=== PATIENT | female | born 1960 | race Caucasian/White ===

== ENCOUNTER 2017-04-17 12:44 | Inpatient (IN) ==
--- NOTE | 2017-04-16 22:36 | Discharge Summary ---
<Promise Sheriff Jackie - Last Filed: 04/16/17 22:31> Date of Encounter: 04/16/17 - Discharge Diagnosis (1) Arthritis of knee, left Priority: Primary Status: Acute (2) Status post total knee replacement, left Priority: Primary Status: Acute (3) Obesity Priority: Secondary Status: Chronic Qualifiers: Obesity type: due to excess calories Obesity classification: unspecified obesity classification Serious obesity comorbidity presence: without serious comorbidity Qualified Code(s): E66.09 - Other obesity due to excess calories - Discharge Medications Home Medications: Aspirin Enteric Coated [Aspirin EC] 325 mg PO DAILY #21 tablet. 04/16/17 [Rx] OxyCODONE Immed Rel [Roxicodone 5 MG] 5 - 10 mg PO Q6HR PRN #40 tablet 04/16/17 [Rx] Acetaminophen [Tylenol] 650 mg PO Q6HR PRN 04/17/17 [History] Furosemide [Lasix] 20 mg PO BID 04/17/17 [History] Allergies/Adverse Reactions: Allergies meperidine [From Demerol] Adverse Reaction (Verified 04/18/17 06:19) Vomiting Primary care physician: Neo Plata CNP - Patient Status Disposition: Transfer Inpatient Rehab Fac Condition: Good - Discharge Instructions Follow Up With: Neo Plata CNP [Primary Care Provider] - - Hospital Course Hospital course: Ms. Singh is a 56 year old female - Time Spent with Patient Total time spent providing and/or coordinating discharge services: <Manjit Hickman - Last Filed: 04/19/17 08:03> Date of Encounter: 04/19/17 Time of Encounter: 08:02 - Discharge Diagnosis (1) Arthritis of knee, left Priority: Primary Status: Chronic (2) Status post total knee replacement, left Priority: Primary Status: Acute (3) Obesity Priority: Secondary Status: Chronic Qualifiers: Obesity type: due to excess calories Obesity classification: unspecified obesity classification Serious obesity comorbidity presence: without serious comorbidity Qualified Code(s): E66.09 - Other obesity due to excess calories (4) Chronic acquired lymphedema Priority: Secondary Status: Chronic (5) Acute blood loss anemia Priority: Primary Status: Acute Primary care physician: Neo Plata CNP - Patient Status Functional capacity at discharge: uses cane/walker Overall status at discharge: patient is progressing back to baseline - Hospital Course Hospital course: Ms. Singh is a 56 year old female Status post left total knee replacement. Patient had a 70 degree flexion contracture preoperatively. This was corrected to neutral. Patient postop hematocrit 26 symptomatic received 2 units of blood. Otherwise uneventful reviewed received antibiotics physical therapy discharge to ECF. - Time Spent with Patient Total time spent providing and/or coordinating discharge services:
--- NOTE | 2017-04-16 22:37 | Physician Discharge Referral ---
ExtendedCare Referral Info Transfer To: [facility] Provider in Charge after Transfer: PCP Institutional Level of Care: Skilled - Diagnosis (1) Arthritis of knee, left Priority: Primary Status: Acute (2) Status post total knee replacement, left Priority: Primary Status: Acute (3) Obesity Priority: Secondary Status: Chronic Expected Duration of Placement: < 30 days Prognosis: Good Aware of Diagnosis: Patient Aware of Prognosis: Patient - Transfer Medications Prescriptions: OxyCODONE Immed Rel [Roxicodone 5 MG] 5 - 10 mg PO Q6HR PRN #40 tablet PRN Reason: Pain Aspirin Enteric Coated [Aspirin EC] 325 mg PO DAILY #21 tablet. Home Medications: Aspirin Enteric Coated [Aspirin EC] 325 mg PO DAILY #21 tablet. 04/16/17 [Rx] OxyCODONE Immed Rel [Roxicodone 5 MG] 5 - 10 mg PO Q6HR PRN #40 tablet 04/16/17 [Rx] Allergies/Adverse Reactions: Allergies meperidine [From Demerol] Adverse Reaction (Verified 04/10/17 12:14) Vomiting - Respiratory Orders None Smoking Cessation: Smoking cessation has been advised. For more information, call the [place] Tobacco Quit Line at 0-916-MRKS-NOW. - Ancillary Orders May use pressure relief devices daily prn, May go on CARMINA w/family/respon green party w /meds at nurse discretion PRN, May consult with Dentist, Business Support Professional, Metal Window Frame Maker PRN - Mobility Orders Chair, Ambulate - Rehabiliation Orders Rehab Potential: Good Rehab Orders: ROM Exercises, Evaluation for Physical Therapy, Evaluation for Occupational Therapy - Treatments Skin tear care topically daily PRN per policy List/Other: Opsite dressing, leave intact until first post-operative visit. If dressing becomes >50% saturated, contact office, remove dressing and place appropriate dressing in its place. Do not allow for dressing to get wet. [place] in place, plan to remove at post-operative day #14-16. Total Joint Precautions x 6 weeks Apply cold therapy wrap 3-6x/day for 20 minutes at a time. Encourage ambulation throughout the day Use Incentive spirometer 10x/hour. Elevate affected extremity above heart as tolerated. Brace: Wear knee immobilizer at night x 2 weeks. - Diet Orders Regular CERTIFICATION: I certify that the transfer of the above named patient to an Extended Care Facility is necessary for the continuing treatment of the diagnosis listed. The above information is true and accurate reflection of patient's current condition. Confidential - Redisclosure prohibited without a patient's written consent.
--- NOTE | 2017-04-17 13:08 | History & Physical Report ---
Date of Encounter: 04/17/17 Time of Encounter: 13:08 24 Hour HP Update - Instructions Instructions: If the History and Physical is less than 30 days old and was completed prior to A.M. admission and or procedure and has NOT been updated on calendar day of procedure please complete this update prior to performing procedure. - Update Patient reports changes in Medical Condition: No Changes in examination, assessment, or condition: No Changes in Medication: No Preop tests/diagnostics Reviewed: Yes Surgery Remains Indicated: Yes Consent for Planned Operative Procedure(s) Verified: Yes - Pre-Operative Checklist Preoperative Checklist Indicated: No Prophylactic Antibiotic Ordered: Yes Is VTE Prophylaxis Indicated?: Yes
[2017-04-17] MEDS ORDERED: Lidocaine -MPF 1% 2 ML VIAL ID ONE (13:15)
[2017-04-17] MEDS ORDERED: CeFAZolin Pre 2,000 MG/100 ML 2,000 MG/100 ML BAG IVPB ONE (13:15)
[2017-04-17] MEDS ORDERED: Ringers Solution, Lactated 1,000 ML IVC SCH (13:15)
[2017-04-17] MEDS ORDERED: Famotidine 20 MG/2 ML VIAL IVP ONE (13:26)
[2017-04-17] MEDS ORDERED: Gabapentin 300 MG CAPSULE PO ONE (13:26)
--- NOTE | 2017-04-17 14:18 | Anesthesia Evaluation PreOp ---
Date of Encounter: 04/17/17 Time of Encounter: 14:15 - Past History Planned Operation: Left TKA Cardiac History: Denies any Significant Hx Pulmonary History: Denies Any Significant HX CATTLE SPRAYER History: Denies Any Significant HX Other Medical History: Other (Morbid Obesity, Osteoarthritis) Anesthesia History: No Prior Anesthetic Complications : No Drug use: none Medications and Allergies Aspirin Enteric Coated [Aspirin EC] 325 mg PO DAILY #21 tablet. 04/16/17 [Rx] OxyCODONE Immed Rel [Roxicodone 5 MG] 5 - 10 mg PO Q6HR PRN #40 tablet 04/16/17 [Rx] Acetaminophen [Tylenol] 650 mg PO Q6HR PRN 04/17/17 [History] Furosemide [Lasix] 20 mg PO BID 04/17/17 [History] Allergies meperidine [From Demerol] Adverse Reaction (Verified 04/10/17 12:14) Vomiting - Meds/Allergy Pre-op Review Medications Reviewed: Yes Allergies Reviewed: Yes Beta Blockers on Current Med List: No Anesthesia Results - Labs Laboratory Tests 04/10/17 04/10/17 12:25 12:25 Hgb 12.0 Hct 38.7 Plt Count 228 Sodium 141 Potassium 4.0 BUN 16 Creatinine 0.71 Anesthesia Exam O2 Sat Height 1.65 m Height 1.65 m Height 1.65 m Weight 113.398 kg Weight 113.398 kg Weight 113.398 kg O2 Sat by Pulse Oximetry 95 Vital Signs Temp Pulse Resp BP Pulse Ox 98.0 F 95 18 143/81 95 04/17/17 13:27 04/17/17 13:27 04/17/17 13:27 04/17/17 13:27 04/17/17 13:27 - HEENT Pupil (Motor): Pupils equal, EOMI Mallampati: III Teeth: Normal Oral Opening: Less than or equal to 3 (Minimal Neck Extension) - CATTLE SPRAYER LOC: Oriented CATTLE SPRAYER Motor: Normal RUE, Normal LUE, Normal RLE, Normal LLE, Normal Face CATTLE SPRAYER Sensory: Normal: RUE, LUE, RLE, LLE, Face - Cardiac Rhythm: Regular Murmur: None JVD: No Carotid Bruit: No - Pulmonary Breath Sounds: bilateral Clear Respiratory Effort: Symmetrical Anesthesia Assess/Plan ASA Score: 3 (MO) Modified Barling Scale for Level of Consciousness: Cooperative, oriented, and tranquil Anesthetic Plan: General, Regional Monitoring Plan: Standard Monitors Recovery Plan: PACU (Disacussed GA and RA, agrees to proceed)
[2017-04-17] MEDS ORDERED: Tetracaine/PF 20 MG/2 ML AMPUL ONE (14:22)
[2017-04-17] MEDS ORDERED: Bupivacaine/Clonidine Syringe 1 EACH SYRINGE ONE (14:23)
--- NOTE | 2017-04-17 15:00 | Anesthesia Procedures ---
Date of Encounter: 04/17/17 Time of Encounter: 14:45 Procedures: Anesthesia - Nerve Block Procedure Date: 04/17/17 Time: 14:45 Allergies/Adv Reactions: demerol Pre-op Diagnosis: left knee arthritis Surgical Procedure: left total knee Checklist: Correct Patient Identifier, Correct procedure, History checked Correct side: Left Blood Thinner: No Monitor Applied: EKG, BP, Pulse Oximetry Supplemental Oxygen via Nasal Cannula (L/min): 2 Sedation: Versed (mg): 2 Sedation: Fentanyl (mcg): 50 Indication: Post Op Analgesia Pre-op Neuro Deficits: No Block Type: Femoral Catheter placed: No Sterile Technique: Yes Ultrasound used: Yes Anatomy identified: Yes Visual spread of Local: Yes Neuro Stimulation: Yes Nerve Stimulator Range: 0.2 - 0.4 mA Blood on Needle Aspiration: No Smooth Injection of Local: Yes Pain with Injection of Local: No Prep: Chlorhexadine Needle: 22 x 50 mm Stimuplex Local: 0.25% Bupivicaine w/Clonidine 20 mcg/cc, Ropivacaine (0.5% 30 ml) Volume (cc): 50 ml total Number of Attempts: 1 Complications: None/effective block Vitals: 3 Vital Signs Time 1445 1450 BP 147/71 125/63 Pulse 100 89 Resp 16 16 O2 Sat 97 97
[2017-04-17] MEDS ORDERED: Ondansetron 4 MG/2 ML VIAL IVP ONE (15:04)
[2017-04-17] MEDS ORDERED: *HR* HYDROmorphone (PF) 1 MG/ML SYRINGE IVP PRN ×2 (15:04→18:07)
[2017-04-17] MEDS ORDERED: *HR* Labetalol 20 MG/4 ML SYRINGE IVP PRN (15:04)
[2017-04-17] MEDS ORDERED: Ondansetron 4 MG/2 ML VIAL ONE (15:33)
[2017-04-17] MEDS ORDERED: *HR* Midazolam HCl 2 MG/2 ML VIAL ONE (15:33)
[2017-04-17] MEDS ORDERED: *HR* Propofol 200 MG/20 ML VIAL IVP ONE (15:33)
[2017-04-17] MEDS ORDERED: Lidocaine -MPF 2% 2 ML VIAL ONE (15:33)
[2017-04-17] MEDS ORDERED: *HR* FentaNYL (PF) 100 MCG/2 ML VIAL ONE ×2 (15:33→15:39)
[2017-04-17] MEDS ORDERED: Dexamethasone 4 MG/ML VIAL ONE (15:33)
[2017-04-17] MEDS ORDERED: *HR* HYDROmorphone 2 MG/ML SYRINGE ONE (15:35)
--- NOTE | 2017-04-17 16:20 | Orthopedic Operative Note ---
Date of procedure: 04/17/17 Pre-op diagnosis: Left knee arthritis Post-op diagnosis: same (70 degree flexion contracture) Procedure: Procedure: Left Total knee replacement Estimated blood loss: 400 cc Hardware: Metal and polyethylene replacement: Biomet Femur: 65, 14 x 120 Tibia: 71, 12 x 120 Edna insert: 10 Patella: 37 Exam Under anesthesia: 70 degree flexion contracture and flexion to 90 degrees Procedural Notes: Grade 4 arthritic changes all 3 compartments. Operative procedure: The patient was brought to the operating room and placed on the operating room table. After general anesthesia was administered the operative knee was examined. Findings were noted in the exam under anesthesia. The operative extremity was prepped and draped in sterile surgical fashion. The patient received IV antibiotics prior to skin incision. A standard midline incision was made centered over the patella. The incision was made through the skin and subcutaneous tissue. A medial parapatellar tendon approach was performed. Care was taken to preserve tissue along the medial aspect of the patella. And to protect the patella tendon. The deep MCL was released off the medial tibia. The infra patella fat pad was excised. Knee was brought into flexion. The entry hole was made for the intramedullary femoral guide. The guide was seated in 6 degrees of valgus. Anterior cut was made followed by the distal cut. The ACL, PCL the medial and the lateral menisci were excised. The tibia was subluxed forward. The entry hole was made for the intramedullary tibial guide. Guide was seated to resect 10 mm off the more abnormal side. The knee was brought into flexion the distal femur was sized to a 65 The femur was first reamed to a routine by 120 The femoral guide was seated, the anterior cut was made followed by the posterior condylar cut, followed by the chamfer cuts. The finishing guide was seated the box cut was made. Trial had good fit and fixation The tibia was sized to a an 71 The tibia was first reamed [id number] Trial reduction revealed full extension no varus valgus instability with the appropriate 10 insert. The patella was everted and cut was made at the level of the insertion of the quadriceps and patella tendon. The patella was sized to a 37 the guide was seated and the lug holes are drilled. Trial reduction revealed excellent patella tracking. All trial components were removed all bony surfaces were irrigated. Components were assembled on the back table. The femur was cemented first followed by the tibia. The 10 Edna was seated and secured. The knee was brought into full extension. The patella was cemented and held in place with the patellar holding clamp. After the cement had hardened, the knee sat for 2 minutes with a Betadine saline solution. The knee was then irrigated out with 2 L of pulse irrigation. The knee was closed by the PA. The extensor mechanism was closed with #2 FiberWire suture and #2 PDS suture. The subcutaneous tissue was then irrigated and closed deep with #1 PDS suture superficially with 0 PDS suture and skin was closed with skin meg The patient was then placed in a sterile dressing and a postoperative brace extubated and transferred to recovery room in stable condition. Anesthesia: MYLA Surgeon: Manjit Hickman [employer]se[employer] Technician: Yolanda Woodruff Condition: stable Disposition: PACU
[2017-04-17 17:36] LABS: Hematocrit 35.2 % (35.3-44.9)
--- NOTE | 2017-04-17 17:37 | Anesthesia Evaluation Post Op ---
Date of Encounter: 04/17/17 Time of Encounter: 17:35 - Vital Signs Vital Signs: Vital Signs/O2 Sat/Glucose, Most Current Temp Pulse Resp BP Pulse Ox 04/17/17 17:28 97.4 F L 82 12 138/85 99 04/17/17 17:18 79 12 125/68 98 04/17/17 17:08 87 14 130/76 97 04/17/17 16:58 97.7 F 95 18 140/73 100 04/17/17 15:00 75 16 114/63 97 04/17/17 14:50 89 16 125/63 97 04/17/17 14:33 100 18 147/71 - Lungs Lungs: Clear Ascult./Percussion - Airway Airway: Non-obstructed - Cardiovascular Regular Rate - Mental Status Mental Status: Alert & Oriented, Answers Appropriately - Pain Pain Scale: 0 - Nausea Vomiting Nausea Vomiting: Not Present - Hydration Hydration: Ice chips - Discharge PostOp Status: Transfer Patient to floor
[2017-04-17] MEDS ORDERED: *HR* Enoxaparin 30 MG/0.3 ML SYRINGE SQ SCH (18:00)
[2017-04-17] MEDS ORDERED: Naloxone 0.4 MG/ML INJ IVP PRN (18:07)
[2017-04-17] MEDS ORDERED: Sennosides 8.6 MG TABLET PO PRN (18:07)
[2017-04-17] MEDS ORDERED: *HR* OxyCODONE Immed Rel 5 MG TABLET PO PRN (18:07)
[2017-04-17] MEDS: Ondansetron 4 MG/2 ML VIAL IVP PRN (19:01)
[2017-04-17] MEDS: Ringers Solution, Lactated 1,000 ML IVC SCH (19:01)
[2017-04-17] MEDS: ceFAZolin 2,000 MG in D5% in Water 100 ML IVPB SCH (20:15)
[2017-04-17] MEDS: Furosemide 20 MG TABLET PO SCH (20:19)
[2017-04-17] MEDS ORDERED: MOM Conc 10 ML UD.LIQ PO PRN (21:00)
[2017-04-17] MEDS ORDERED: Temazepam 15 MG CAPSULE PO PRN (21:00)
[2017-04-18] MEDS: Ringers Solution, Lactated 1,000 ML IVC SCH (01:26)
[2017-04-18] MEDS: Ondansetron 4 MG/2 ML VIAL IVP PRN ×2 (01:27→07:47)
[2017-04-18] MEDS: ceFAZolin 2,000 MG in D5% in Water 100 ML IVPB SCH (02:20)
[2017-04-18 05:29] LABS: Hematocrit 30.2 % (35.3-44.9); Hemoglobin 9.5 g/dL (11.5-15.4)
[2017-04-18 05:33] LABS: BUN/Creatinine Ratio 17 (6-26); Blood Urea Nitrogen 11 mg/dL (7-20); Calcium 8.1 mg/dL (8.6-10.8); Carbon Dioxide 32 mEq/L (19-29); Chloride 102 mEq/L (98-109); Glucose 157 mg/dL (70-99); Osmolality,Calculated 287 (280-300); Potassium 4.1 mEq/L (3.5-4.5); Sodium 137 mEq/L (136-145); eGFR For African Americans > 60 (> 60); eGFR For Non-African Americans > 60 (> 60)
[2017-04-18] MEDS: *HR* Enoxaparin 30 MG/0.3 ML SYRINGE SQ SCH ×2 (06:44→17:52)
--- NOTE | 2017-04-18 06:45 | Orthopedics Progress Note ---
Date of Encounter: 04/18/17 Time of Encounter: 06:45 - Assessment and Plan (1) Arthritis of knee, left Current Visit: Yes Status: Chronic (2) Status post total knee replacement, left Current Visit: Yes Status: Acute (3) Obesity Current Visit: Yes Status: Chronic Qualifiers: Obesity type: due to excess calories Obesity classification: unspecified obesity classification Serious obesity comorbidity presence: without serious comorbidity Qualified Code(s): E66.09 - Other obesity due to excess calories (4) Chronic acquired lymphedema Current Visit: Yes Status: Chronic (5) Acute blood loss anemia Current Visit: Yes Status: Acute Subjective Interval history: Patient was seen this morning doing well without complaints. Afebrile vital signs stable. Operative extremity: Neurovascularly intact Dressing clean dry and intact Calves nontender Assessment and plan: Continue with postoperative care Hemoglobin 9.5 Objective Vital signs: Vital Signs Temp Pulse Resp BP Pulse Ox 04/18/17 06:39 98.7 F 113 18 110/60 100 04/18/17 03:07 97.6 F 77 18 108/67 95 04/17/17 23:35 97.7 F 85 18 113/67 100 04/17/17 20:29 97.5 F L 74 16 120/76 100 04/17/17 18:55 97.3 F L 72 16 123/81 98 04/17/17 18:30 97.3 F L 95 17 123/81 99 04/17/17 18:28 98 04/17/17 18:16 97.5 F L 70 16 132/76 04/17/17 17:55 97.5 F L 78 16 120/69 99 04/17/17 17:28 97.4 F L 82 12 138/85 99 04/17/17 17:18 79 12 125/68 98 04/17/17 17:08 87 14 130/76 97 04/17/17 16:58 97.7 F 95 18 140/73 100 04/17/17 15:00 75 16 114/63 97 04/17/17 14:50 89 16 125/63 97 04/17/17 14:33 100 18 147/71 04/17/17 13:27 98.0 F 95 18 143/81 95 Intake and Output 04/17/17 04/17/17 04/18/17 15:59 23:59 07:59 Intake Total 100 / 100 600 / 600 1000 / 1000 Output Total 400 / 400 780 / 780 Balance 100 / 100 200 / 200 220 / 220 Intake: IV Fluids 100 / 100 100 / 100 1000 / 1000 Lactated Ringers 1,000 ML 1000 / 1000 @ 75 mls/hr IVC .[id number] [facility] Rx#:[id number] Ancef Premix 2,000 MG/100 100 / 100 ML 2,000 mg In 100 ml @ 200 mls/hr IVPB PREOP ONE Rx#:[id number] Ancef 2,000 MG In 100 / 100 Dextrose 5% 100 ML @ 200 mls/hr IVPB Q8HR [facility] Rx#: [id number] Oral 500 / 500 Output: Urine 0 / 0 500 / 500 Emesis 280 / 280 Estimated Blood Loss 400 / 400 Other: Weight 113.398 kg 115 kg Patient Weight 04/18/17 23:59 Weight 115 kg - Labs CBC & BMP: 04/18/17 03:58 04/18/17 03:58 Labs: Abnormal lab results Hgb 9.5 g/dL (11.5-15.4) L D 04/18/17 03:58 Hct 30.2 % (35.3-44.9) L 04/18/17 03:58 Carbon Dioxide 32 mEq/L (19-29) H 04/18/17 03:58 Glucose 157 mg/dL (70-99) H 04/18/17 03:58 Calcium 8.1 mg/dL (8.6-10.8) L 04/18/17 03:58 - VTE Documentation of Mechanical Device: Venous foot pump, device Consult Discharge Plan - Plan Referrals: Neo Plata TANK COOPER [Primary Care Provider] -
[2017-04-18] MEDS: Furosemide 20 MG TABLET PO SCH ×2 (07:47→17:56)
--- NOTE | 2017-04-18 11:52 | Event Note ---
Date of Encounter: 04/18/17 Time of Encounter: 11:12 PCR - POD#. 1 Patient seen at bedside. Pain control: Participating in PT. All questions and concerns addressed. Educated on use of incentive spirometer, ambulation, and hydration. Patient educated on post-operative restrictions and care. Addressed: Stay in immobilizer while in bed, to prevent knee contracture. D/C plan: ECF
[2017-04-19] MEDS: Ringers Solution, Lactated 1,000 ML IVC SCH (00:08)
[2017-04-19 05:04] LABS: Hematocrit 26.5 % (35.3-44.9); Hemoglobin 8.4 g/dL (11.5-15.4)
[2017-04-19 05:18] LABS: BUN/Creatinine Ratio 12 (6-26); Blood Urea Nitrogen 7 mg/dL (7-20); Calcium 8.1 mg/dL (8.6-10.8); Carbon Dioxide 33 mEq/L (19-29); Chloride 103 mEq/L (98-109); Glucose 126 mg/dL (70-99); Osmolality,Calculated 286 (280-300); Potassium 3.7 mEq/L (3.5-4.5); Sodium 138 mEq/L (136-145); eGFR For African Americans > 60 (> 60); eGFR For Non-African Americans > 60 (> 60)
[2017-04-19] MEDS: *HR* Enoxaparin 30 MG/0.3 ML SYRINGE SQ SCH ×2 (05:38→17:20)
--- NOTE | 2017-04-19 08:02 | Orthopedics Progress Note ---
Date of Encounter: 04/19/17 Time of Encounter: 08:00 - Assessment and Plan (1) Arthritis of knee, left Current Visit: Yes Status: Chronic (2) Status post total knee replacement, left Current Visit: Yes Status: Acute (3) Obesity Current Visit: Yes Status: Chronic Qualifiers: Obesity type: due to excess calories Obesity classification: unspecified obesity classification Serious obesity comorbidity presence: without serious comorbidity Qualified Code(s): E66.09 - Other obesity due to excess calories (4) Chronic acquired lymphedema Current Visit: Yes Status: Chronic (5) Acute blood loss anemia Current Visit: Yes Status: Acute Subjective Interval history: Patient was seen this morning doing well without complaints. Afebrile vital signs tachycardia Operative extremity: Neurovascularly intact Dressing clean dry and intact Calves nontender Assessment and plan: Continue with postoperative care Hematocrit 26 symptomatic anemia transfuse 2 units plan for discharge this afternoon if stable Objective Vital signs: Vital Signs Temp Pulse Resp BP Pulse Ox 04/19/17 06:58 98.3 F 111 20 135/78 97 04/19/17 05:46 98.8 F 118 20 120/72 96 04/19/17 03:41 98.4 F 112 16 119/63 94 04/18/17 23:34 98.8 F 120 18 128/70 98 04/18/17 19:14 98.9 F 110 17 115/62 97 04/18/17 15:45 96 04/18/17 15:27 98.4 F 111 16 116/51 96 04/18/17 12:11 98.8 F 114 16 114/73 97 Intake and Output 04/18/17 04/19/17 04/19/17 23:59 07:59 15:59 Intake Total 240 / 240 500 / 500 Output Total 400 / 400 500 / 500 Balance -160 / -160 0 / 0 Intake: IV Fluids 500 / 500 Lactated Ringers 1,000 ML 500 / 500 @ 75 mls/hr IVC .[id number] Rx#:[id number] Oral 240 / 240 Output: Urine 400 / 400 500 / 500 Other: Meal Dinner Percent of Meal Consumed 100% Weight 116.3 kg Patient Weight 04/19/17 23:59 Weight 116.3 kg - Labs CBC & BMP: 04/19/17 04:05 04/19/17 04:05 Labs: Abnormal lab results Hgb 8.4 g/dL (11.5-15.4) L 04/19/17 04:05 Hct 26.5 % (35.3-44.9) L 04/19/17 04:05 Carbon Dioxide 33 mEq/L (19-29) H 04/19/17 04:05 Glucose 126 mg/dL (70-99) H 04/19/17 04:05 Calcium 8.1 mg/dL (8.6-10.8) L 04/19/17 04:05 - VTE Documentation of Mechanical Device: Venous foot pump, device Consult Discharge Plan - Plan Referrals: Neo Plata CNP [Primary Care Provider] -
[2017-04-19] MEDS: Furosemide 20 MG TABLET PO SCH ×2 (08:36→17:20)
[2017-04-19] MEDS: *HR* OxyCODONE Immed Rel 5 MG TABLET PO PRN ×2 (09:17→17:41)
--- NOTE | 2017-04-19 11:23 | Event Note ---
Date of Encounter: 04/19/17 Time of Encounter: 12:00 PCR - POD#2 L TKR Patient seen at bedside. Doing well. Dressing clean. On CPM during PCR. Pain control: adequate per patient Participating in PT. All questions and concerns addressed. Educated on use of incentive spirometer, ambulation, and hydration. Patient educated on post-operative restrictions and care. Patient to wear immobilizer when resting in bed or laying still secondary to hx of knee contracture. Okay to remove for CPM and therapy. D/C plan:.[facility] for inpatient rehab.
[2017-04-19] MEDS ORDERED: 0.9 % Sodium Chloride 250 ML ONE ×2 (11:42→15:52)
[2017-04-19 21:27] VITALS: BP 134/67
== END 2017-04-19 23:05 | DRG 470 ==
LOC: SAMDAY 12:44 → 3NENU 17:55
PROVIDERS: ADMIT Orthopaedic Surgery; ATTEND Orthopaedic Surgery

== ENCOUNTER 2017-09-09 07:27 | Inpatient (IN) ==
--- NOTE | 2017-09-09 07:39 | History & Physical Report ---
Date of Encounter: 09/09/17 Time of Encounter: 07:38 24 Hour HP Update - Instructions Instructions: If the History and Physical is less than 30 days old and was completed prior to A.M. admission and or procedure and has NOT been updated on calendar day of procedure please complete this update prior to performing procedure. - Update Patient reports changes in Medical Condition: No Changes in examination, assessment, or condition: No Changes in Medication: No Preop tests/diagnostics Reviewed: Yes Surgery Remains Indicated: Yes Consent for Planned Operative Procedure(s) Verified: Yes - Pre-Operative Checklist Preoperative Checklist Indicated: No Prophylactic Antibiotic Ordered: Yes Is VTE Prophylaxis Indicated?: Yes
--- NOTE | 2017-09-09 07:41 | Discharge Summary ---
Date of Encounter: 09/11/17 Time of Encounter: 06:49 - Discharge Diagnosis (1) Arthritis of right knee Priority: Primary Status: Chronic (2) Status post total right knee replacement Priority: Primary Status: Acute (3) Morbid obesity with BMI of 40.0-44.9, adult Priority: Secondary Status: Chronic (4) Status post total knee replacement, left Priority: Secondary Status: Chronic (5) Chronic acquired lymphedema Priority: Secondary Status: Chronic (6) Acute blood loss anemia Priority: Primary Status: Acute - Discharge Medications Home Medications: Acetaminophen [Tylenol] 500 mg PO TID 09/09/17 [History] Allergies/Adverse Reactions: 3 Allergy/AdvReac Type Severity Reaction Status Date / Time meperidine [From Demerol] AdvReac Vomiting Verified 09/10/17 17:07 Primary care physician: Neo Plata CNP - Patient Status Disposition: Home Health Service Condition: Good Functional capacity at discharge: uses cane/walker Overall status at discharge: patient is progressing back to baseline - Discharge Instructions Follow Up With: Neo Plata CNP [Primary Care Provider] - - Hospital Course Hospital course: Ms. Singh is a 56 year old female Status post right total knee replacement. Patient with acute blood loss anemia and received 2 units of blood. The patient had an uneventful postoperative course. They received antibiotics and physical therapy and were discharged in stable condition. There will follow -up in the office in 2 weeks. - Time Spent with Patient Total time spent providing and/or coordinating discharge services:
[2017-09-09] MEDS ORDERED: CeFAZolin Syr 2,000MG/20 ML 2,000 MG/20 ML SYRINGE IVPB ONE (07:42)
[2017-09-09] MEDS ORDERED: Plasma-Lyte A (PH 7.4) 1,000 ML IVC SCH (07:45)
--- NOTE | 2017-09-09 08:39 | Anesthesia Evaluation PreOp ---
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 HX Other Medical History: Denies Any Significant HX Anesthesia History: No Prior Anesthetic Complications, Past Anesthesia (L TKR, tubal) Alcohol Use: none Drug use: none Medications and Allergies Acetaminophen [Tylenol] 500 mg PO TID 09/09/17 [History] 3 Allergy/AdvReac Type Severity Reaction Status Date / Time meperidine [From Demerol] AdvReac Vomiting Verified 09/06/17 13:50 - Meds/Allergy Pre-op Review Medications Reviewed: Yes Allergies Reviewed: Yes Beta Blockers on Current Med List: No Anesthesia Results - Labs Laboratory Tests 04/19/17 09/06/17 09/06/17 04:05 14:33 14:33 WBC 4.0 L Hgb 12.1 Hct 39.3 Plt Count 216 PT 10.7 INR 1.0 APTT 29.8 Sodium Potassium Chloride Carbon Dioxide BUN Creatinine Glucose 126 H 09/06/17 14:33 WBC Hgb Hct Plt Count PT INR APTT Sodium 138 Potassium 4.0 Chloride 101 Carbon Dioxide 29 BUN 18 Creatinine 0.69 Glucose Anesthesia Exam O2 Sat Height 1.65 m Height 1.65 m Weight 111.13 kg Weight 111.13 kg O2 Sat by Pulse Oximetry 99 O2 Sat by Pulse Oximetry 99 Vital Signs Temp Pulse Resp BP Pulse Ox 97.8 F 90 18 149/78 99 09/09/17 07:55 09/09/17 07:55 09/09/17 07:55 09/09/17 07:55 09/09/17 07:55 Height: 1.65m Weight: 111kg NPO (# of Hours): >8 Pain Scale: 0 - HEENT Pupil (Motor): Pupils equal, EOMI Mallampati: II Teeth: Normal Oral Opening: Greater than 3 - FACILITY MAINTENANCE WORKER LOC: Oriented FACILITY MAINTENANCE WORKER Motor: Normal RUE, Normal LUE, Normal RLE, Normal LLE, Normal Face FACILITY MAINTENANCE WORKER Sensory: Normal: RUE, LUE, RLE, LLE, Face - Cardiac Rhythm: Regular - Pulmonary Breath Sounds: bilateral Clear Respiratory Effort: Symmetrical Anesthesia Assess/Plan ASA Score: 2 Modified Lloyd Scale for Level of Consciousness: Cooperative, oriented, and tranquil Anesthetic Plan: General (r/b/a discussed, questions answered, consent obtained) , Regional (R femoral nn block and i pack) Monitoring Plan: Standard Monitors Recovery Plan: PACU
[2017-09-09] MEDS ORDERED: *HR* Propofol 200 MG/20 ML VIAL IVP ONE (09:10)
[2017-09-09] MEDS ORDERED: *HR* Midazolam HCl 2 MG/2 ML VIAL ONE (09:10)
[2017-09-09] MEDS ORDERED: Lidocaine -MPF 2% 2 ML VIAL ONE (09:10)
[2017-09-09] MEDS ORDERED: *HR* FentaNYL (PF) 100 MCG/2 ML VIAL ONE (09:10)
[2017-09-09] MEDS ORDERED: Ethanol\\Acetic Acid\\Na Ace\\Ben 1,000 ML IRRIG.SOLN IR ONE (09:56)
[2017-09-09] MEDS ORDERED: ROPIVACAINE HCL/PF 0.5% 30 ML VIAL ONE (10:00)
[2017-09-09] MEDS ORDERED: Bupivacaine/Clonidine Syringe 1 EACH SYRINGE ONE (10:00)
[2017-09-09] MEDS ORDERED: Dexamethasone 4 MG/ML VIAL ONE ×2 (10:01→11:41)
[2017-09-09] MEDS ORDERED: *HR* Promethazine 25 MG/ML VIAL IVP PRN (10:11)
[2017-09-09] MEDS ORDERED: *HR* Labetalol 20 MG/4 ML SYRINGE IVP PRN (10:11)
[2017-09-09] MEDS ORDERED: *HR* HYDROmorphone (PF) 1 MG/ML SYRINGE IVP PRN ×2 (10:11→13:23)
--- NOTE | 2017-09-09 10:57 | Anesthesia Procedures ---
Date of Encounter: 09/09/17 Time of Encounter: 10:30 Procedures: Anesthesia - Nerve Block Procedure Date: 09/09/17 Time: 10:30 Pre-op Diagnosis: right knee arthritis Surgical Procedure: robo right knee Checklist: Correct Patient Identifier, Correct procedure, History checked Correct side: Right Blood Thinner: No Monitor Applied: EKG, BP, Pulse Oximetry Supplemental Oxygen via Nasal Cannula (L/min): 2 Sedation: Versed (mg): 2 Sedation: Fentanyl (mcg): 100 Indication: Post Op Analgesia Pre-op Neuro Deficits: No Block Type: Femoral, Other (iPACK) Catheter placed: No Sterile Technique: Yes Ultrasound used: Yes Anatomy identified: Yes Visual spread of Local: Yes Neuro Stimulation: Yes Nerve Stimulator Range: 0.2 - 0.4 mA Blood on Needle Aspiration: No Smooth Injection of Local: Yes Pain with Injection of Local: No Prep: Chlorhexadine Needle: 21 x 100 mm Stimuplex Local: 0.25% Bupivicaine w/Clonidine 20 mcg/cc, Ropivacaine (0.5% with 8 of decadron) Volume (cc): 50 total Number of Attempts: 1 Complications: None/effective block Vitals: VSS Vital Signs/O2 Sat, Most Current Temp Pulse Resp BP Pulse Ox 97.8 F 87 16 107/58 99 09/09/17 07:55 09/09/17 10:30 09/09/17 10:30 09/09/17 10:30 09/09/17 10:30
[2017-09-09] MEDS ORDERED: EPHEDrine 50 MG/ML VIAL ONE (11:26)
[2017-09-09] MEDS ORDERED: *HR* HYDROmorphone 2 MG/ML SYRINGE ONE (11:31)
[2017-09-09] MEDS ORDERED: *HR* Phenylephrine 10 MG/ML VIAL ONE (11:34)
[2017-09-09] MEDS ORDERED: Ketorolac 30 MG/ML VIAL ONE (11:53)
[2017-09-09] MEDS ORDERED: Acetaminophen IV 1,000 MG/100 ML INFUS..BTL ONE (11:59)
--- NOTE | 2017-09-09 12:10 | Orthopedic Operative Note ---
Date of procedure: 09/09/17 Pre-op diagnosis: Right knee arthritis Post-op diagnosis: same Procedure: Procedure: Right Total knee replacement Estimated blood loss: 500 cc Hardware: Metal and polyethylene replacement: Biomet Femur: 65, 18 x 120 stem Tibia: 71, 12 x 40 stem Edna insert: 10 Patella: 34 Exam Under anesthesia: Loss full extension 10 degrees anterior laxity Procedural Notes: Patient with grade 4 arthritic changes all 3 compartments. Operative procedure: The patient was brought to the operating room and placed on the operating room table. After general anesthesia was administered the operative knee was examined. Findings were noted in the exam under anesthesia. The operative extremity was prepped and draped in sterile surgical fashion. The patient received IV antibiotics prior to skin incision. A standard midline incision was made centered over the patella. The incision was made through the skin and subcutaneous tissue. A medial parapatellar tendon approach was performed. Care was taken to preserve tissue along the medial aspect of the patella. And to protect the patella tendon. The deep MCL was released off the medial tibia. The infra patella fat pad was excised. Knee was brought into flexion. Patient with grade 4 arthritic changes all 3 compartments . The entry hole was made for the intramedullary femoral guide. The guide was seated in 6 degrees of valgus. Anterior cut was made followed by the distal cut. The PCL the medial and the lateral menisci were excised. The tibia was subluxed forward. The entry hole was made for the intramedullary tibial guide. Guide was seated to resect 2 mm off the more abnormal side. The knee was brought into flexion the distal femur was sized to a 65. The femur was first reamed to a 18 x 120 The femoral guide was seated, the anterior cut was made followed by the posterior condylar cut, followed by the chamfer cuts. The finishing guide was seated the box cut was made. Trial had good fit and fixation The tibia was sized to a an 71 The tibia was first reamed 12 x 40 Trial reduction revealed full extension no varus valgus instability with the appropriate 10 insert. The patella was everted and cut was made at the level of the insertion of the quadriceps and patella tendon. The patella was sized to a 34 the guide was seated and the lug holes are drilled. Trial reduction revealed excellent patella tracking. All trial components were removed all bony surfaces were irrigated. Components were assembled on the back table. The femur was cemented first followed by the tibia. The 10 Edna was seated and secured. The knee was brought into full extension. The patella was cemented and held in place with the patellar holding clamp. After the cement had hardened, the knee sat for 2 minutes with a Betadine saline solution. The knee was then irrigated out with 2 L of pulse irrigation. The extensor mechanism was closed with #2 FiberWire suture and #2 PDS suture. The subcutaneous tissue was then irrigated and closed deep with #1 PDS suture superficially with 0 PDS suture and skin was closed with skin meg The patient was then placed in a sterile dressing and a postoperative brace extubated and transferred to recovery room in stable condition. Anesthesia: GETOtf Surgeon: Manjit Hickman Condition: stable Disposition: PACU
[2017-09-09 13:01] LABS: Hematocrit 33.3 % (35.3-44.9)
[2017-09-09 13:03] LABS: Hemoglobin 10.2 g/dL (11.5-15.4)
--- NOTE | 2017-09-09 13:18 | Anesthesia Evaluation Post Op ---
Date of Encounter: 09/09/17 Time of Encounter: 13:17 - Vital Signs Vital Signs: Vital Signs/O2 Sat, Most Current Temp Pulse Resp BP Pulse Ox 98.0 F 87 16 121/58 95 09/09/17 12:59 09/09/17 12:59 09/09/17 12:59 09/09/17 12:59 09/09/17 12:59 - Lungs Lungs: Clear Ascult./Percussion - Airway Airway: Non-obstructed - Cardiovascular Regular Rate - Mental Status Mental Status: Alert & Oriented, Answers Appropriately - Pain Pain Scale: 0 Pain Scale used: Numeric (1 - 10) - Nausea Vomiting Nausea Vomiting: Not Present - Hydration Hydration: Ice chips - Discharge PostOp Status: Transfer Patient to floor Attestation: I have assessed this patient and find they meet discharge criteria.
[2017-09-09] MEDS ORDERED: Ringers Solution, Lactated 1,000 ML IVC SCH (13:23)
[2017-09-09] MEDS ORDERED: Temazepam 15 MG CAPSULE PO PRN (13:23)
[2017-09-09] MEDS ORDERED: MOM Conc 10 ML UD.LIQ PO PRN (13:23)
[2017-09-09] MEDS ORDERED: Sennosides 8.6 MG TABLET PO PRN (13:23)
[2017-09-09] MEDS ORDERED: Naloxone 0.4 MG/ML INJ IVP PRN (13:23)
[2017-09-09] MEDS ORDERED: *HR* OxyCODONE Immed Rel 5 MG TABLET PO PRN (13:23)
[2017-09-09] MEDS: Ondansetron 4 MG/2 ML VIAL IVP PRN ×2 (13:56→21:53)
[2017-09-09] MEDS ORDERED: *HR* Enoxaparin 30 MG/0.3 ML SYRINGE SQ SCH (18:00)
[2017-09-09] MEDS: *HR* Enoxaparin 30 MG/0.3 ML SYRINGE SQ SCH (18:28)
[2017-09-09] MEDS: CeFAZolin Premix DUPLEX 2,000 MG/50 ML BAG IVPB SCH (18:28)
[2017-09-09] MEDS: *HR* OxyCODONE Immed Rel 5 MG TABLET PO PRN (22:52)
[2017-09-10] MEDS: CeFAZolin Premix DUPLEX 2,000 MG/50 ML BAG IVPB SCH (03:42)
[2017-09-10] MEDS: Ondansetron 4 MG/2 ML VIAL IVP PRN (04:15)
[2017-09-10 07:04] LABS: Hematocrit 27.5 % (35.3-44.9)
[2017-09-10 07:10] LABS: Hemoglobin 8.5 g/dL (11.5-15.4)
[2017-09-10 07:18] LABS: BUN/Creatinine Ratio 22 (6-26); Blood Urea Nitrogen 14 mg/dL (7-20); Calcium 8.4 mg/dL (8.6-10.8); Carbon Dioxide 28 mEq/L (19-29); Chloride 105 mEq/L (98-109); Glucose 123 mg/dL (70-99); Osmolality,Calculated 292 (280-300); Potassium 4.2 mEq/L (3.5-4.5); Sodium 140 mEq/L (136-145); eGFR For African Americans > 60 (> 60); eGFR For Non-African Americans > 60 (> 60)
[2017-09-10] MEDS: *HR* Enoxaparin 30 MG/0.3 ML SYRINGE SQ SCH (08:34)
[2017-09-10] MEDS: *HR* OxyCODONE Immed Rel 5 MG TABLET PO PRN ×3 (09:29→21:27)
[2017-09-10] MEDS ORDERED: 0.9 % Sodium Chloride 250 ML ONE ×2 (11:51→14:32)
--- NOTE | 2017-09-10 14:35 | Orthopedics Progress Note ---
Date of Encounter: 09/10/17 Time of Encounter: 14:34 Subjective Principal diagnosis: Right knee arthritis Interval history: Patient is comfortable with mild pain. She says block is not fully worn off The patient receiving transfusion right now Physical exam: Right knee wound dressings are clean dry intact Positive swelling of her right foot Calves soft and nontender Postoperative day #1 status post right total knee arthroplasty Continue DVT prophylaxis Continue OT/PT Check H&H tomorrow Objective Vital signs: Vital Signs Temp Pulse Resp BP Pulse Ox 09/10/17 14:16 98 F 105 18 118/61 99 09/10/17 12:01 98.4 F 102 16 121/64 99 09/10/17 11:58 98.1 F 107 18 125/68 98 09/10/17 10:45 98.3 F 104 16 108/62 95 09/10/17 06:40 98.2 F 93 16 137/68 95 09/10/17 03:39 98.2 F 88 18 133/63 96 09/09/17 20:21 98.2 F 88 18 127/54 96 09/09/17 18:24 92 18 96 09/09/17 16:30 97.9 F 81 16 119/65 93 09/09/17 15:30 98.0 F 80 16 115/57 95 Intake and Output 09/09/17 09/10/17 09/10/17 23:59 07:59 15:59 Intake Total 950 / 950 400 / 400 1247 / 1247 Output Total 400 / 400 Balance 550 / 550 400 / 400 1247 / 1247 Intake: IV Fluids 50 / 50 50 / 50 1000 / 1000 Lactated Ringers 1,000 ML @ 75 1000 / 1000 mls/hr IVC .[id number] [facility] Rx#: [id number] Ancef Premix DUPLEX 2,000 mg In 50 / 50 50 / 50 50 ml @ 100 mls/hr IVPB Q8H [facility] Rx#:[id number] Oral 900 / 900 350 / 350 Blood Product 247 / 247 Rbcs Leuko Poor As-1 Unit 247 / 247 [id number] Output: Urine 400 / 400 - Labs CBC & BMP: 09/10/17 05:55 09/10/17 05:55 Labs: Abnormal lab results Hgb 8.5 g/dL (11.5-15.4) L D 09/10/17 05:55 Hct 27.5 % (35.3-44.9) L 09/10/17 05:55 Glucose 123 mg/dL (70-99) H 09/10/17 05:55 Calcium 8.4 mg/dL (8.6-10.8) L 09/10/17 05:55 - VTE Documentation of Mechanical Device: Intermittent pneumatic compression device Consult Discharge Plan - Plan Referrals: Neo Plata CNP [Primary Care Provider] -
--- NOTE | 2017-09-11 06:50 | Orthopedics Progress Note ---
Date of Encounter: 09/11/17 Time of Encounter: 06:49 - Assessment and Plan (1) Arthritis of right knee Current Visit: Yes Status: Chronic (2) Status post total right knee replacement Current Visit: Yes Status: Acute (3) Morbid obesity with BMI of 40.0-44.9, adult Current Visit: Yes Status: Chronic (4) Status post total knee replacement, left Current Visit: No Status: Chronic (5) Chronic acquired lymphedema Current Visit: No Status: Chronic (6) Acute blood loss anemia Current Visit: No Status: Acute Subjective Principal diagnosis: Right knee arthritis Interval history: Patient was seen this morning doing well without complaints. Afebrile vital signs stable. Operative extremity: Neurovascularly intact Dressing clean dry and intact Calves nontender Assessment and plan: Continue with postoperative care Discharged today Objective Vital signs: Vital Signs Temp Pulse Resp BP Pulse Ox 09/11/17 06:47 98.5 F 109 16 134/81 94 09/11/17 03:50 98.2 F 88 18 136/86 95 09/11/17 00:32 97.9 F 82 18 131/81 96 09/10/17 17:52 98.6 F 96 16 110/65 97 09/10/17 14:50 98.3 F 104 16 118/57 94 09/10/17 14:33 98.5 F 101 16 118/64 95 09/10/17 14:16 98 F 105 18 118/61 99 09/10/17 12:01 98.4 F 102 16 121/64 99 09/10/17 11:58 98.1 F 107 18 125/68 98 09/10/17 10:45 98.3 F 104 16 108/62 95 Intake and Output 09/10/17 09/10/17 09/11/17 15:59 23:59 07:59 Intake Total 1497 / 1497 700 / 700 120 / 120 Output Total 350 / 350 500 / 500 Balance 1147 / 1147 200 / 200 120 / 120 Intake: IV Fluids 1000 / 1000 0.9 % Sodium Chloride 250 ML As 0 / 0 .ROUTE .STK-MED ONE Rx#: [id number] Lactated Ringers 1,000 ML @ 75 1000 / 1000 mls/hr IVC .[id number] [facility] Rx#: [id number] Oral 250 / 250 400 / 400 120 / 120 Blood Product 247 / 247 300 / 300 Rbcs Leuko Poor As-1 Unit 0 / 0 300 / 300 [id number] Rbcs Leuko Poor As-1 Unit 247 / 247 [id number] Output: Urine 350 / 350 500 / 500 Other: Meal Breakfast Dinner Percent of Meal Consumed 60% 30% - Labs CBC & BMP: 09/10/17 05:55 09/10/17 05:55 Labs: Abnormal lab results Hgb 8.5 g/dL (11.5-15.4) L D 09/10/17 05:55 Hct 27.5 % (35.3-44.9) L 09/10/17 05:55 Glucose 123 mg/dL (70-99) H 09/10/17 05:55 Calcium 8.4 mg/dL (8.6-10.8) L 09/10/17 05:55 - VTE Documentation of Mechanical Device: Intermittent pneumatic compression device Consult Discharge Plan - Plan Referrals: Neo Plata RESPITE PROVIDER [Primary Care Provider] -
[2017-09-11 06:54] LABS: Hematocrit 32.8 % (35.3-44.9)
[2017-09-11 06:56] LABS: Hemoglobin 10.2 g/dL (11.5-15.4)
[2017-09-11 07:10] LABS: BUN/Creatinine Ratio 15 (6-26); Blood Urea Nitrogen 10 mg/dL (7-20); Calcium 8.6 mg/dL (8.6-10.8); Carbon Dioxide 28 mEq/L (19-29); Chloride 103 mEq/L (98-109); Glucose 110 mg/dL (70-99); Osmolality,Calculated 284 (280-300); Potassium 4.1 mEq/L (3.5-4.5); Sodium 137 mEq/L (136-145); eGFR For African Americans > 60 (> 60); eGFR For Non-African Americans > 60 (> 60)
[2017-09-11] MEDS: *HR* Enoxaparin 30 MG/0.3 ML SYRINGE SQ SCH ×2 (07:33→18:51)
[2017-09-11] MEDS: *HR* OxyCODONE Immed Rel 5 MG TABLET PO PRN ×2 (07:34→15:43)
--- NOTE | 2017-09-11 12:04 | Physician Discharge Referral ---
ExtendedCare Referral Info Transfer To: [facility] Provider in Charge: Dr Manjit Hickman - Diagnosis (1) Obesity Priority: Secondary Status: Chronic (2) Chronic acquired lymphedema Priority: Secondary Status: Chronic (3) Arthritis of right knee Priority: Primary Status: Chronic (4) Status post total right knee replacement Priority: Primary Status: Acute (5) Morbid obesity with BMI of 40.0-44.9, adult Priority: Secondary Status: Chronic Expected Duration of Placement: less than 30 days Prognosis: Good Aware of Diagnosis: Patient Aware of Prognosis: Patient - Transfer Medications Home Medications: Acetaminophen [Tylenol] 500 mg PO TID 09/09/17 [History] Allergies/Adverse Reactions: 3 Allergy/AdvReac Type Severity Reaction Status Date / Time meperidine [From Demerol] AdvReac Vomiting Verified 09/10/17 17:07 - Respiratory Orders Smoking Cessation: Smoking cessation has been advised. For more information, call the [employer] Quit Line at 8-201-NGHH-NOW. - Ancillary Orders May use pressure relief devices daily prn, May go on CARMINA w/family/respon alliance party w /meds at nurse discretion PRN, May consult with Dentist, Seam Stay Stitcher, Poacher Wringer Operator PRN - Mobility Orders Chair, Ambulate - Rehabiliation Orders Rehab Potential: Good Rehab Orders: Evaluation for Physical Therapy, Evaluation for Occupational Therapy Other: Total Knee replacement Precautions x 6 weeks Apply cold therapy wrap 3-6x/day for 20 minutes at a time. Encourage ambulation throughout the day and incentive spirometer 10x/hour. Elevate affected extremity above heart as tolerated. Brace: Wear knee immobilizer at night x 2 weeks. - Treatments Skin tear care topically daily PRN per policy - Diet Orders Regular CERTIFICATION: I certify that the transfer of the above named patient to an Extended Care Facility is necessary for the continuing treatment of the diagnosis listed. The above information is true and accurate reflection of patient's current condition. Confidential - Redisclosure prohibited without a patient's written consent.
[2017-09-12] MEDS: *HR* OxyCODONE Immed Rel 5 MG TABLET PO PRN ×2 (03:28→15:20)
[2017-09-12] MEDS: *HR* Enoxaparin 30 MG/0.3 ML SYRINGE SQ SCH (05:40)
--- NOTE | 2017-09-12 06:49 | Orthopedics Progress Note ---
Date of Encounter: 09/12/17 Time of Encounter: 06:49 - Assessment and Plan (1) Arthritis of right knee Current Visit: Yes Status: Chronic (2) Status post total right knee replacement Current Visit: Yes Status: Acute (3) Morbid obesity with BMI of 40.0-44.9, adult Current Visit: Yes Status: Chronic (4) Status post total knee replacement, left Current Visit: No Status: Chronic (5) Chronic acquired lymphedema Current Visit: No Status: Chronic (6) Acute blood loss anemia Current Visit: No Status: Acute Subjective Principal diagnosis: Right knee arthritis Interval history: Patient was seen this morning doing well without complaints. Afebrile vital signs stable. Operative extremity: Neurovascularly intact Dressing clean dry and intact Calves nontender Assessment and plan: Continue with postoperative care Discharged today Objective Vital signs: Vital Signs Temp Pulse Resp BP Pulse Ox 09/12/17 04:33 99.7 F H 95 17 121/67 92 09/12/17 00:52 99.0 F 109 15 111/64 95 09/11/17 19:34 97.7 F 67 15 136/65 97 09/11/17 15:42 98.6 F 108 17 124/76 97 09/11/17 11:24 98.6 F 103 16 113/68 97 Intake and Output 09/11/17 09/11/17 09/12/17 15:59 23:59 07:59 Intake Total 240 / 240 150 / 150 Output Total 150 / 150 600 / 600 Balance 90 / 90 -450 / -450 Intake: Oral 240 / 240 150 / 150 Output: Urine 150 / 150 600 / 600 Other: Meal Breakfast Dinner Percent of Meal Consumed 90% 100% - Labs CBC & BMP: 09/11/17 06:12 09/11/17 06:12 Labs: Abnormal lab results Hgb 10.2 g/dL (11.5-15.4) L D 09/11/17 06:12 Hct 32.8 % (35.3-44.9) L 09/11/17 06:12 Glucose 110 mg/dL (70-99) H 09/11/17 06:12 - VTE Documentation of Mechanical Device: Venous foot pump, device Consult Discharge Plan - Plan Referrals: Neo Plata SALES AGENT [employer]ANCIAL REPORT SERVICE [Primary Care Provider] -
--- NOTE | 2017-09-12 12:17 | Event Note ---
Date of Encounter: 09/12/17 Time of Encounter: 12:45 PCR- POD#3 R TKR 09/09 Vick PCR - Patient seen at bedside. Pain control: Adequate Participating in PT. All questions and concerns addressed. Educated on use of incentive spirometer, ambulation, and hydration. Patient educated on post-operative restrictions and care. Addressed: see above. D/C plan: ECF - pending auth.
[2017-09-13 07:03] VITALS: BP 169/79
== END 2017-09-12 18:23 | disposition home health service (06) | DRG 470 ==
LOC: SAMDAY 07:27 → 3NENU 13:17
PROVIDERS: ADMIT Orthopaedic Surgery; ATTEND Orthopaedic Surgery